=== PATIENT | male | born 1945 | race Caucasian/White ===

== ENCOUNTER → 2020-11-30 | Outpatient (CLI) | payer OTHER ==
--- NOTE | 2020-11-30 14:47 | 2DMMODE ---
[place] [address] 2 D/M-MODE ECHOCARDIOGRAM Name: LISA RAMIREZ Room: [facility]#: [id number] Admission: 11/30/20 Attend Phys: Jose Luna MD Discharge: Date of : 45 Date of Service: 11/30/20 1447 Report #: [id number] THIS REPORT FOR: cc: FAM - No family physician/PCP FAM - No family physician/PCP Jere Blanco MD [facility] ~ APPROVED REPORT Study performed: 11/30/2020 13:50:20 EXAM: Comprehensive 2D, Doppler, and color-flow Echocardiogram Patient Location: Out-Patient BSA: 2.20 HR: 74 bpm BP: 160/64 mmHg Other Information Study Quality: Good Indications CAD 2D Dimensions IVSd: 10.99 (7-11mm) LVOT Diam: 21.24 (18-24mm) LVDd: 50.53 mm PWd: 11.72 (7-11mm) Ascending Ao: 32.69 (22-36mm) LVDs: 30.27 (25-40mm) Aortic Root: 31.34 mm Volumes Left Atrial Volume (Systole) LA ESV Index: 21.50 mL/m2 Aortic Valve AoV Peak David.: 1.58 m/s AO Peak Gr.: 9.94 mmHg LVOT Max P.39 mmHg AO Mean Gr.: 5.58 mmHg LVOT Mean P.18 mmHg LVOT Max V: 1.05 m/s AO V2 VTI: 33.04 cm LVOT Mean V: 0.69 m/s RAYNE (VTI): 2.64 cm2 LVOT V1 VTI: 24.59 cm Mitral Valve E/A Ratio: 0.85 [place] [address] 2 D/M-MODE ECHOCARDIOGRAM Name: LISA RAMIREZ Room: [facility]#: [id number] Admission: 11/30/20 Attend Phys: Jose Luna MD Discharge: Date of : 45 Date of Service: 11/30/20 1447 Report #: [id number] MV Decel. Time: 188.55 ms MV E Max David.: 0.71 m/s MV PHT: 54.68 ms MVA (PHT): 4.02 cm2 TDI E/Lateral E': 7.10 E/Medial E': 10.14 Medial E' David.: 0.07 m/s Lateral E' David.: 0.10 m/s Pulmonary Valve PV Peak David.: 0.89 m/s PV Peak Gr.: 3.16 mmHg Tricuspid Valve RAP Estimate: 5.00 mmHg TR Peak Gr.: 32.91 mmHg RVSP: 37.91 mmHg PA Pressure: 37.91 mmHg Left Ventricle The left ventricle is normal size. There is normal LV segmental wall motion. There is normal left ventricular wall thickness. Left ventricular systolic function is normal. The left ventricular ejection fraction is within the normal range. LVEF is 60-65%. Grade I - abnormal relaxation pattern. Right Ventricle The right ventricle is normal size. The right ventricular systolic function is normal. Atria The left atrium size is normal. The right atrium size is normal. Aortic Valve The Aortic valve is sclerotic. No aortic regurgitation is present. There is no aortic valvular stenosis. Mitral Valve The mitral valve is normal in structure. There is mitral annular calcification. Trace mitral regurgitation. No evidence of mitral valve stenosis. Tricuspid Valve The tricuspid valve is normal in structure. Mild tricuspid regurgitation. estimated pa pressure 45 [place] [address] 2 D/M-MODE ECHOCARDIOGRAM Name: ASHLEYLISA Room: [facility]#: [id number] Admission: 11/30/20 Attend Phys: Jose Luna MD Discharge: Date of : 45 Date of Service: 11/30/20 1447 Report #: [id number] Pulmonic Valve The pulmonary valve is normal in structure. There is no pulmonic valvular regurgitation. Great Vessels The aortic root is normal in size. IVC is normal in size and collapses >50% with inspiration. Pericardium There is no pericardial effusion. <Conclusion> LVEF is 60-65%. The Aortic valve is sclerotic. Mild tricuspid regurgitation. estimated pa pressure 45 mm Hg <ELECTRONICALLY SIGNED> By: Jere Blanco MD, [facility] 11/30/20 1447 1447 1447 Jere Blanco MD, FACC /INF
== END ==
LOC: M.CRD 13:51
PROVIDERS: ATTEND Orthopaedic Surgery
DX: I07.1 Rheumatic tricuspid insufficiency (principal); I25.10 Atherosclerotic heart disease of native coronary artery without angina pectoris; R55 Syncope and collapse